=== PATIENT | female | born 1965 | race Caucasian/White ===

== ENCOUNTER 2021-04-05 16:50 | Outpatient (REF) | payer OTHER, SELFPAY ==
--- NOTE | ~2021-04-05 | CT_ITS ---
EXAMINATION: CT ABDOMEN AND PELVIS WITHOUT CONTRAST CLINICAL INFORMATION: Abdominal pain, evaluate for kidney stone COMPARISON: CT of the abdomen and pelvis 03/29/2011 TECHNIQUE: Multidetector volumetric imaging was performed from the superior aspect of the liver through the pubic symphysis. Sagittal and coronal reformatted images were obtained on the technologist's workstation. This CT examination was performed using dose optimization techniques as appropriate, variously including the following: *Automated exposure control *Adjustment of mA and/or kV according to patient size (this includes techniques or standardized protocols for targeted exams where dose is matched to indication/reason for exam; i.e. extremities or head) *Use of iterative reconstruction technique DLP: 652 mGy-cm FINDINGS: LUNG BASES: The visualized lung bases are unremarkable. LIVER, GALLBLADDER, AND BILIARY TREE: Several low-density ovoid lesions throughout the liver again demonstrated, likely bank representative of cysts. These are unchanged in number and appearance as compared to the prior study. The gallbladder is surgically absent. No intrahepatic biliary ductal dilatation. PANCREAS: Unremarkable. SPLEEN: Unremarkable. ADRENAL GLANDS: Unremarkable. KIDNEYS AND URETERS: There is a 0.9 cm calculus at the left renal pelvis, just above the left UPJ with associated mild pelviectasis. There are additional bilateral nonobstructive calculi, measuring up to 0.3 cm on the right and 0.3 cm on the left. BLADDER: Unremarkable. GASTROINTESTINAL TRACT: The stomach and small bowel are not dilated. No pericolonic inflammatory change. The appendix is not clearly identified, but there are no pericecal inflammatory changes. ABDOMINAL WALL: No significant hernia is appreciated. LYMPH NODES: No pathologically enlarged lymph nodes. There is stranding in the mid mesenteric fat, similar to the prior study (series 3, image 40). VASCULAR: Normal caliber of the abdominal aorta. Minimal punctate atherosclerotic calcifications. PELVIC VISCERA: Normal noncontrast appearance of the uterus. No adnexal mass. OSSEOUS STRUCTURES: No acute or suspicious osseous abnormality. Multilevel degenerative changes of the spine. CT/CT abdomen pelvis wo con IMPRESSION: 0.9 cm calculus of the left renal pelvis, just above the left UPJ with mild associated pelviectasis. Additional bilateral nonobstructive calculi measuring up to 0.3 cm. Mild stranding of the mid mesenteric fat, similar in appearance to the prior study, may reflect edema or inflammation, although findings are similar to the prior study. Recommend clinical correlation.
== END 2021-04-05 16:51 | disposition home or self-care (01) ==
LOC: HO.CT 16:50
PROVIDERS: PCP Internal Medicine; Visit Provider Urology
DX: N20.0 Calculus of kidney (principal)
CPT/HCPCS: 74176